=== PATIENT | male | born 1945 | race Caucasian/White ===

== ENCOUNTER 2020-10-19 06:28 | Outpatient (REF) | payer MEDICARE, OTHER, SELFPAY ==
[2020-10-19 11:46] LABS: Hematocrit 46.6 % (42-52); Hemoglobin 15.7 g/dl (14.0-18.0); Mean Corpuscular HGB Conc 33.7 g/dl (31.0-36.0); Mean Corpuscular Hemoglobin 32.4 pg (27.0-33.0); Mean Corpuscular Volume 96.1 fL (80-98); Mean Platelet Volume 10.1 fL (9.4-12.4); Platelet Count 235 X10*3/uL (160-400); Red Blood Count 4.85 X10*6/uL (4.60-5.80); White Blood Count 6.1 X10*3/uL (4.8-10.8)
[2020-10-19 12:09] LABS: Alanine Aminotransferase 36 U/L (0-40); Albumin Level 4.5 g/dL (3.5-5.0); Alkaline Phosphatase 55 U/L (39-117); Anion Gap 14 (12-20); Aspartate Amino Transferase 18 U/L (5-37); Bilirubin Total 0.5 mg/dL (0.0-1.0); Blood Urea Nitrogen 15 mg/dL (9-16); Calcium 9.3 mg/dL (8.4-10.2); Carbon Dioxide 27 mmol/L (22-29); Chloride 103 mmol/L (96-108); Cholesterol 208 mg/dL; Estimated Glomerular Filt Rate > 60; Glucose Fasting 105 mg/dL (60-99); HDL Cholesterol 39 mg/dL; LDL Cholesterol Calculated 105 mg/dl; Potassium 4.2 mmol/l (3.3-5.1); Sodium 140 mmol/L (135-145); Total Protein 7.7 g/dL (6.5-8.0); Triglycerides 320 mg/dL; Uric Acid 5.1 mg/dL (3.4-7.0)
[2020-10-19 12:11] LABS: Prostate Specific Antigen Scr 1.73 ng/mL (<0.05-4.0); TSH reflex Free T4 2.97 mIU/mL (0.32-4.0)
== END 2020-10-19 06:29 | disposition home or self-care (01) ==
LOC: HO.HMGCLDS 06:28
PROVIDERS: PCP Internal Medicine; Visit Provider Internal Medicine
DX: R53.83 Other fatigue (principal); E55.9 Vitamin D deficiency, unspecified; Z00.00 Encounter for general adult medical examination without abnormal findings
CPT/HCPCS: 36415; 80053; 80061; 82306; 84153; 84443; 84550; 85027

== ENCOUNTER 2021-10-18 06:07 | Outpatient (REF) | payer MEDICARE, OTHER, SELFPAY ==
[2021-10-18 11:23] LABS: Hematocrit 42.9 % (42.0-52.0); Hemoglobin 14.4 g/dl (14.0-18.0); Mean Corpuscular HGB Conc 33.6 g/dl (31.0-36.0); Mean Corpuscular Hemoglobin 32.1 pg (27.0-33.0); Mean Corpuscular Volume 95.5 fL (80.0-98.0); Mean Platelet Volume 9.7 fL (9.4-12.4); Platelet Count 218 X10*3/uL (160-400); Red Blood Count 4.49 X10*6/uL (4.60-5.80); Red Cell Distribution Width 12.9 % (11.0-16.0); White Blood Count 6.6 X10*3/uL (4.8-10.8)
[2021-10-18 11:55] LABS: Alanine Aminotransferase 30 U/L (0-40); Albumin Level 4.3 g/dL (3.5-5.0); Alkaline Phosphatase 61 U/L (39-117); Anion Gap 15 (12-20); Aspartate Amino Transferase 17 U/L (5-37); Bilirubin Total 0.3 mg/dL (0.0-1.0); Blood Urea Nitrogen 11 mg/dL (9-16); Calcium 9.6 mg/dL (8.4-10.2); Carbon Dioxide 27 mmol/L (22-29); Chloride 102 mmol/L (96-108); Cholesterol 216 mg/dL; Estimated Glomerular Filt Rate > 60; Glucose Random 112 mg/dL (60-115); HDL Cholesterol 35 mg/dL; LDL Cholesterol Calculated 110 mg/dl; Potassium 4.1 mmol/L (3.3-5.1); Sodium 140 mmol/L (135-145); Total Protein 7.5 g/dL (6.5-8.0); Triglycerides 359 mg/dL
[2021-10-18 12:25] LABS: TSH reflex Free T4 3.01 uIU/mL (0.32-4.0)
[2021-10-18 12:34] LABS: Prostate Specific Antigen Scr 2.56 ng/mL (<0.05-4.0)
== END 2021-10-18 06:08 | disposition home or self-care (01) ==
LOC: HO.HMGCLDS 06:07
PROVIDERS: PCP Internal Medicine; Visit Provider Internal Medicine
DX: Z00.00 Encounter for general adult medical examination without abnormal findings (principal); Z12.5 Encounter for screening for malignant neoplasm of prostate; R53.83 Other fatigue
CPT/HCPCS: 36415; 80053; 80061; 84153; 84443; 85027

== ENCOUNTER 2022-09-12 06:27 | Day surgery (SDC) | payer MEDICARE, OTHER, SELFPAY ==
--- NOTE | 2022-09-11 12:53 | P.CONAN_ITS ---
Documented by User: Maritza Mcghee NP 09/11/22 12:53 HPI - Anesthesia Eval Consult details Narrative: 77yo M for Upper Endoscopy with Balloon Dilitation [facility] Past Medical History Medical History Diverticulosis Gout Shingles Tubular adenoma Social History Social History Patient Tobacco Use Status: Former Tobacco user Quit Date: decades ago Use of substances other than those prescribed or required for medical reasons: No Are you DNR?: No Advance Directives: No Advance Directives Information Provided: Yes Meds Allergies Allergy/AdvReac Type Severity Reaction Status Date / Time Seasonal Allergies Allergy Intermediate Unknown Verified 09/12/22 06:36 Home Medications Medication Instructions Recorded Confirmed Last Taken Type allopurinol 300 mg tablet 1 tab PO DAILY 09/11/22 09/11/22 Unknown History Exam Exam Date and Time: September 11, 20221252 Assessment and Plan Assessment Anesthesia Assessment: Chart Reviewed Documented by User: Hardeep Ascencio MD 09/12/22 07:23 [facility] Past Medical History Medical History Diverticulosis Gout Shingles Tubular adenoma Family History Family history of problems with anesthesia: No Surgical History History of Problems with Anesthesia: No Social History Social History Patient Tobacco Use Status: Former Tobacco user Quit Date: decades ago Use of substances other than those prescribed or required for medical reasons: No Are you DNR?: No Advance Directives: No Advance Directives Information Provided: Yes Meds Allergies Allergy/AdvReac Type Severity Reaction Status Date / Time Seasonal Allergies Allergy Intermediate Unknown Verified 09/12/22 06:36 Home Medications Medication Instructions Recorded Confirmed Last Taken Type allopurinol 300 mg tablet 1 tab PO DAILY 09/11/22 09/11/22 Unknown History Exam Airway Mallampati Class: III TM Dist: >3cm Neck ROM: Full Loose/Missing/Broken Teeth: No Heart: rrr Lungs: clear Assessment and Plan Final Anesthetic Review Family History of Problems with Anesthesia: No History of Problems with Anesthesia: No NPO: Yes ASA Class: II Final Preanesthetic Review: No Changes in Pt Med Stat, Meds/Allgs Chart Reviewed, Consent Obtained/Reviewed and Anes Risks/Benef Reviewed Patient Risk: Intermediate Procedure Risk: Low Anesthetic Plan Anesthetic Plan: MAC: Disposition: Standard PACU
[2022-09-12 06:39] VITALS: BP 127/84; PULSE 78; RESP 18; TEMP 36.9; O2SAT 98; BMI 26.9
[2022-09-12] MEDS: Lactated Ringers 1,000 ML 100 ML IVCONT (07:00)
[2022-09-12 07:02] VITALS: BMI 26.9
[2022-09-12 08:12] VITALS: BP 106/69; PULSE 75; RESP 18; TEMP 36.4; O2SAT 94
--- NOTE | 2022-09-12 08:16 | PM.OP ---
Brief Operative Note Date of Service: 09/12/22 Pre-op diagnosis: Dysphagia Post-op diagnosis: other (GERD, Hiatal hernia) Procedure: EGD with Balloon Dilation and biopsies Surgeon: Lee Becerra Anesthesia: MAC Was an Multiple Knife Edge Trimmer Operator used for this Procedure?: No Estimated blood loss (mL): 2.0 Pathology: other (A. EG Junction at 38cm B. Gastric polyps) Condition: stable Disposition: PACU
[2022-09-12 08:23] VITALS: BP 113/76; PULSE 74; RESP 18; TEMP 36.4; O2SAT 9
--- NOTE | 2022-09-12 21:31 | OP_ITS ---
SURGEON: Lee Becerra MD INDICATIONS: The patient presents for evaluation of dysphagia. Full consent has been obtained from him for this, including risks of bleeding and perforation. PREOPERATIVE DIAGNOSIS: POSTOPERATIVE DIAGNOSIS: PROCEDURE PERFORMED: Esophagogastroduodenoscopy with balloon dilation and biopsies. ESTIMATED BLOOD LOSS: COMPLICATIONS: ANESTHESIA: Monitored anesthesia care. ASSISTANTS: SPECIMENS: PREOPERATIVE DIAGNOSES: Dysphagia. POSTOPERATIVE DIAGNOSES: Dysphagia, gastroesophageal reflux, hiatal hernia, gastric polyps. DESCRIPTION OF PROCEDURE: The patient was placed in the left lateral decubitus position. The Olympus video gastroscope was passed into the posterior oropharynx and upper esophagus under direct vision. The scope was passed slowly to the distal esophagus. The gastroesophageal junction appeared at 38 cm. This area was notable for some edema, erythema, and some irregularity of the mucosa but no ulcerations, erosions, stricture, nor any definitive ring. The scope easily entered into the stomach. There was a small hiatal hernia. The scope was advanced to the pylorus, and the duodenum was cannulated in the descending portion. The duodenum including the bulb appeared normal without mass or ulceration. The scope was withdrawn back into the stomach. The gastric antrum and body appeared normal with good peristalsis. The scope was retroflexed visualizing the proximal stomach carefully, which appeared normal, without any sign of mass or ulceration, other than some hyperplastic-appearing gastric polyps. The scope was straightened and withdrawn back to the esophagus. I did use a [employer] incremental balloon to dilate the gastroesophageal junction from 18 mm to 19 mm to 20 mm at the recommended pressure for 60 seconds each. There was some heme noted post dilation. I then obtained biopsies at the gastroesophageal junction. Again, the scope passed easily into the stomach without any hesitation or difficulty. In the stomach I did obtain biopsies from 2 of the gastric polyps. The scope was withdrawn back to the esophagus. Proximal to the EG junction at 38 cm, the esophageal mucosa appeared normal. The scope was withdrawn from the patient. He tolerated the procedure well and was returned to the recovery area in stable condition. IMPRESSION: 1. Hiatal hernia, gastroesophageal reflux, status post balloon dilation of gastroesophageal junction. 2. Gastric polyps. PLAN: The results of the biopsies will be checked. Given his symptoms and these findings, I do suspect that a significant component of his dysphagia is probably more related to reflux and esophageal spasm. I shall start him on omeprazole 40 mg daily. The results of the biopsies will be checked. He was advised not to use any aspirin or NSAIDs for at least 1 week. If things improve and he remains stable, then I do not think any further workup would be required. At some point, we can decrease omeprazole to 20 mg daily. However, if he continues to have significant symptoms of dysphagia, we would then want to obtain an esophageal motility study. He will be followed up in the office. This has been discussed with his . MD RENÉ Rashid/CANDIDO / [id number] MTDD
== END 2022-09-12 09:06 | disposition home or self-care (01) ==
PROVIDERS: PCP Internal Medicine; Visit Provider Internal Medicine
PROC: (CPT 43249; principal; 2022-09-12 07:30)
DX: R13.10 Dysphagia, unspecified (principal); K21.9 Gastro-esophageal reflux disease without esophagitis; K31.7 Polyp of stomach and duodenum; K44.9 Diaphragmatic hernia without obstruction or gangrene; K57.30 Diverticulosis of large intestine without perforation or abscess without bleeding; M10.9 Gout, unspecified; Z79.899 Other long term (current) drug therapy; Z86.19 Personal history of other infectious and parasitic diseases; Z87.891 Personal history of nicotine dependence
CPT/HCPCS: 43249; 43239; 88305; 88342; C1726

== ENCOUNTER 2022-10-18 06:09 | Outpatient (REF) | payer MEDICARE, OTHER, SELFPAY ==
[2022-10-18 11:27] LABS: Hematocrit 44.7 % (42.0-52.0); Mean Corpuscular HGB Conc 33.6 g/dl (31.0-36.0); Mean Corpuscular Hemoglobin 32.1 pg (27.0-33.0); Mean Corpuscular Volume 95.5 fL (80.0-98.0); Mean Platelet Volume 9.9 fL (9.4-12.4); Platelet Count 206 X10*3/uL (160-400); Red Blood Count 4.68 X10*6/uL (4.60-5.80); Red Cell Distribution Width 13.2 % (11.0-16.0)
[2022-10-18 12:26] LABS: Alanine Aminotransferase 41 U/L (0-40); Albumin Level 4.4 g/dL (3.5-5.0); Alkaline Phosphatase 57 U/L (39-117); Anion Gap 11 (12-20); Aspartate Amino Transferase 21 U/L (5-37); Bilirubin Total 0.5 mg/dL (0.0-1.0); Blood Urea Nitrogen 15 mg/dL (9-16); Calcium 9.7 mg/dL (8.4-10.2); Carbon Dioxide 31 mmol/L (22-29); Chloride 99 mmol/L (96-108); Cholesterol 214 mg/dL; Estimated Glomerular Filt Rate 56; Glucose Random 122 mg/dL (60-115); HDL Cholesterol 31 mg/dL; Potassium 4.6 mmol/L (3.3-5.1); Sodium 136 mmol/L (135-145); Total Protein 7.5 g/dL (6.5-8.0); Triglycerides 474 mg/dL
== END 2022-10-18 06:10 | disposition home or self-care (01) ==
LOC: HO.HMGCLDS 06:09
PROVIDERS: PCP Internal Medicine; Visit Provider Internal Medicine
DX: Z00.00 Encounter for general adult medical examination without abnormal findings (principal); R53.83 Other fatigue; Z12.5 Encounter for screening for malignant neoplasm of prostate
CPT/HCPCS: 36415; 80053; 80061; 84153; 84443; 85027

== ENCOUNTER 2023-05-06 07:31 | Day surgery (SDC) | payer MEDICARE, OTHER, SELFPAY ==
[2023-04-30 09:18] VITALS: BMI 27.0
--- NOTE | 2023-05-03 08:09 | MHC.SHP ---
Pre-Procedural Eval Section A Date of Service: 05/03/23 The patient is an INPATIENT: No Changes since office visit: No Cold of Flu in the past 2 weeks, No New Medical Problems, No Changes in Medication and No Patient answered all questions The History & Physical has been completed within 30 days and I have reviewed it.: Yes Section B Chief Complaint: Age-related nuclear cataract, left eye Allergies: Allergies Allergy/AdvReac Type Severity Reaction Status Date / Time Seasonal Allergies Allergy Intermediate Unknown Verified 09/12/22 06:36 Plan Diagnosis/Plan: Unchanged I have reviewed the history and physical and performed a pertinent physical examination on my patient. No changes have occurred unless specified. Time Spent With Patient Time: Total time managing care of this patient today ____ minutes.
--- NOTE | 2023-05-03 09:31 | HO.ANESPROP2 ---
HPI - Anesthesia Eval Consult details Narrative: Left Cataract Multifocal with IOL Insertion PCP cleared No previous cataract PMFSH Past Medical History Medical History Arthritis Diverticulosis GERD (gastroesophageal reflux disease) Gout Shingles Tubular adenoma Family History Family history of problems with anesthesia: No Surgical History Surgical History H/O colonoscopy History of esophagogastroduodenoscopy (EGD) History of Problems with Anesthesia: No Social History Social History Are you a primary care transitions manager to a significant other at home: No Do you presently have visiting nurse or other home services: No Patient Tobacco Use Status: Former Tobacco user Quit Date: age 28 Use of substances other than those prescribed or required for medical reasons: No Have you been hit, kicked, punched, or otherwise hurt by someone within the past year? If so, by whom?: No Are you DNR?: No Advance Directives: No (states is HCP) Advance Directives Information Provided: Yes (as above noted) Advance Directives on File: No Recently lost weight without trying: No Eating poorly because of decreased appetite: No Nutrition Risks: Surgical patient >75years Poor oral hygiene: No Meds Allergies Allergy/AdvReac Type Severity Reaction Status Date / Time Seasonal Allergies Allergy Intermediate Unknown Verified 05/06/23 08:08 Home Medications Medication Instructions Recorded Confirmed Last Taken Type allopurinol 300 mg tablet 1 tab PO QAM 09/11/22 04/30/23 05/06/23 06:30 History fluticasone propionate 50 2 spray intranasal QAM 04/30/23 04/30/23 05/06/23 06:30 History mcg/actuation nasal spray,suspension omeprazole 40 mg capsule,delayed 40 mg PO QAM 04/30/23 04/30/23 05/06/23 06:30 History release Exam Exam Date and Time: May 03, 202331 Height,Weight and Vital Signs: Height 5 ft 10 in Weight 85.275 kg Assessment and Plan Assessment Anesthesia Assessment: Chart Reviewed Final Anesthetic Review Family History of Problems with Anesthesia: No History of Problems with Anesthesia: No
[2023-05-06 09:12] VITALS: BP 132/80; PULSE 70; RESP 15; TEMP 36.7; O2SAT 98
[2023-05-06] MEDS: Lactated Ringers 500 ML 50 ML IV (09:14)
[2023-05-06] MEDS: Tetracaine HCl/PF 0.5% Oph Sol 4 ML DROPS 1 DROP EYE-LEFT (09:14)
[2023-05-06] MEDS: Cyclopentolate 1 % Ophth Sol 2 ML DRPBTL 1 DROP EYE-LEFT ×3 (09:15→09:24)
[2023-05-06] MEDS: Tropicamide 1 % Ophth Sol 3 ML BTL 1 DROP EYE-LEFT ×3 (09:16→09:25)
[2023-05-06] MEDS: Ketorolac Tromethamine 0.5% Op 5 ML DROPS 1 DROP EYE-LEFT ×3 (09:17→09:26)
[2023-05-06] MEDS: Phenylephrine HCL 2.5% Oph SoL 2 ML BOTTLE 1 DROP EYE-LEFT ×3 (09:18→09:27)
--- NOTE | 2023-05-06 10:43 | HO.PNOPHT ---
Ophthalmology Procedure Procedure Date of Service: 05/06/23 Ophthalmology Viscoelastic: Healdionicio Duet Dual Pack Pro Ophthalmology Lenses: TECLARON [id number] (11.5) Procedure Notes: PREOPERATIVE DIAGNOSIS: Decreased visual acuity left eye secondary to cataract POSTOPERATIVE DIAGNOSIS: Same PROCEDURE: Left cataract extraction with intraocular lens insertion SURGEON: Phil Mcdonald M.D. ANESTHESIA: Topical/MAC ESTIMATED BLOOD LOSS: None COMPLICATIONS: None After obtaining informed consent, the patient was brought to the operation room suite and placed in the supine position. After adequate sedation per anesthesia, topical drops of Tetracaine were given to the left eye. The eye was then prepped and draped in the usual sterile fashion. The operating room microscope was then positioned over the operative eye and a lid speculum placed. A paracentesis was created. Viscoelastic was then instilled into the anterior chamber. A three plane incision was then created temporally, utilizing a 2.85 mm keratome. Capsulotomy forceps were then utilized to create a circular tear capsulotomy. Hydrodissection and hydrodelineation were carried out until adequate mobilization of the nucleus occurred. Phacoemulsification was then utilized to remove the dense central nucleus followed by removal of the cortical material utilizing the automated aspiration irrigation unit. Viscoat elastic was instilled into the posterior capsular bag followed by placement of a posterior chamber intraocular lens without difficulty. The residual Viscoat elastic was then removed utilizing the automated IA machine. The wound was check and found to be watertight. The patient tolerated the procedure well and the lid speculum was removed. Intracameral injection of Vigamox 0.1 mL followed by a subtenon injection of Kenalog-40 0.2 mL were administered. The patient will be seen in the a.m.
[2023-05-06 11:05] VITALS: BP 160/92; PULSE 75; RESP 17; TEMP 36.5; O2SAT 99
== END 2023-05-06 11:09 | disposition home or self-care (01) ==
PROVIDERS: PCP Internal Medicine; Visit Provider Ophthalmology
PROC: (CPT 66985; principal; 2023-05-06 10:40)
DX: H25.12 Age-related nuclear cataract, left eye (principal); H54.7 Unspecified visual loss; M10.9 Gout, unspecified; K21.9 Gastro-esophageal reflux disease without esophagitis; J30.1 Allergic rhinitis due to pollen; Z79.899 Other long term (current) drug therapy; Z87.891 Personal history of nicotine dependence
CPT/HCPCS: 66984; J2250; J3010; J3301; V2632

== ENCOUNTER 2023-05-27 09:28 | Day surgery (SDC) | payer MEDICARE, OTHER, SELFPAY ==
[2023-04-30 09:20] VITALS: BMI 27.0
--- NOTE | 2023-05-24 08:16 | MHC.SHP ---
Pre-Procedural Eval Section A Date of Service: 05/24/23 The patient is an INPATIENT: No Changes since office visit: No Cold of Flu in the past 2 weeks, No New Medical Problems, No Changes in Medication and No Patient answered all questions The History & Physical has been completed within 30 days and I have reviewed it.: Yes Section B Chief Complaint: Age-related nuclear cataract, right eye Allergies: Allergies Allergy/AdvReac Type Severity Reaction Status Date / Time Seasonal Allergies Allergy Intermediate Unknown Verified 05/06/23 08:08 Plan Diagnosis/Plan: Unchanged I have reviewed the history and physical and performed a pertinent physical examination on my patient. No changes have occurred unless specified. Time Spent With Patient Time: Total time managing care of this patient today ____ minutes.
--- NOTE | 2023-05-24 10:43 | HO.ANESPROP2 ---
Documented by User: Maritza Mcghee NP 05/24/23 10:44 HPI - Anesthesia Eval Consult details Narrative: 78yo M for Right Cataract Extraction IOL Insertion PCP cleared Left eye 05/06/2023 with TIVA: Fent 50, Midaz 1 PMFSH Past Medical History Medical History Arthritis Diverticulosis GERD (gastroesophageal reflux disease) Gout Shingles Tubular adenoma Family History Family history of problems with anesthesia: No Surgical History Surgical History H/O colonoscopy History of esophagogastroduodenoscopy (EGD) History of Problems with Anesthesia: No Social History Social History Are you a primary care clinician to a significant other at home: No Do you presently have visiting nurse or other home services: No Patient Tobacco Use Status: Former Tobacco user Quit Date: age 28 Use of substances other than those prescribed or required for medical reasons: No Have you been hit, kicked, punched, or otherwise hurt by someone within the past year? If so, by whom?: No Are you DNR?: No Advance Directives: No (states is HCP) Advance Directives Information Provided: Yes (as above noted) Advance Directives on File: No Recently lost weight without trying: No Eating poorly because of decreased appetite: No Nutrition Risks: Surgical patient >75years Poor oral hygiene: No Meds Allergies Allergy/AdvReac Type Severity Reaction Status Date / Time Seasonal Allergies Allergy Intermediate Unknown Verified 05/06/23 08:08 Home Medications Medication Instructions Recorded Confirmed Last Taken Type allopurinol 300 mg tablet 1 tab PO QAM 09/11/22 04/30/23 05/27/23 History fluticasone propionate 50 2 spray intranasal QAM 04/30/23 04/30/23 05/06/23 06:30 History mcg/actuation nasal spray,suspension omeprazole 40 mg capsule,delayed 40 mg PO QAM 04/30/23 04/30/23 05/27/23 History release Exam Exam Date and Time: May 24, 2023 1043 Height,Weight and Vital Signs: Height 5 ft 10 in Weight 85.275 kg Assessment and Plan Assessment Anesthesia Assessment: Chart Reviewed Final Anesthetic Review Family History of Problems with Anesthesia: No History of Problems with Anesthesia: No Documented by User: Tiffanie Leigh MD 05/27/23 12:13 [facility] Past Medical History Medical History Arthritis Diverticulosis GERD (gastroesophageal reflux disease) Gout Shingles Tubular adenoma Surgical History Surgical History H/O colonoscopy History of esophagogastroduodenoscopy (EGD) Social History Social History Are you a primary care clinician to a significant other at home: No Do you presently have visiting nurse or other home services: No Patient Tobacco Use Status: Former Tobacco user Quit Date: age 28 Use of substances other than those prescribed or required for medical reasons: No Have you been hit, kicked, punched, or otherwise hurt by someone within the past year? If so, by whom?: No Are you DNR?: No Advance Directives: No (states is HCP) Advance Directives Information Provided: Yes (as above noted) Advance Directives on File: No Recently lost weight without trying: No Eating poorly because of decreased appetite: No Nutrition Risks: Surgical patient >75years Poor oral hygiene: No Meds Allergies Allergy/AdvReac Type Severity Reaction Status Date / Time Seasonal Allergies Allergy Intermediate Unknown Verified 05/06/23 08:08 Home Medications Medication Instructions Recorded Confirmed Last Taken Type allopurinol 300 mg tablet 1 tab PO QAM 09/11/22 04/30/23 05/27/23 History fluticasone propionate 50 2 spray intranasal QAM 04/30/23 04/30/23 05/06/23 06:30 History mcg/actuation nasal spray,suspension omeprazole 40 mg capsule,delayed 40 mg PO QAM 04/30/23 04/30/23 05/27/23 History release Exam Airway Mallampati Class: II TM Dist: >3cm Neck ROM: Full Loose/Missing/Broken Teeth: No Heart: RRR Lungs: CTA Assessment and Plan Assessment Anesthesia Assessment: Anesthesia Plan Discussed Final Anesthetic Review NPO: Yes ASA Class: II Final Preanesthetic Review: Meds/Allgs Chart Reviewed, Consent Obtained/Reviewed and Anes Risks/Benef Reviewed Patient Risk: Low Procedure Risk: Low Anesthetic Plan Anesthetic Plan: MAC: Disposition: Standard PACU
[2023-05-27 11:07] VITALS: BP 173/95; PULSE 70; RESP 16; TEMP 36.7; O2SAT 97
--- NOTE | 2023-05-27 12:06 | HO.PNOPHT ---
Ophthalmology Procedure Procedure Date of Service: 05/27/23 Ophthalmology Viscoelastic: Teresa Diegot Dual Pack Pro Ophthalmology Lenses: TECLARON [id number] (10) Procedure Notes: PREOPERATIVE DIAGNOSIS: Decreased visual acuity right eye secondary to cataract POSTOPERATIVE DIAGNOSIS: Same PROCEDURE: Right cataract extraction with intraocular lens insertion SURGEON: Phil Mcdonald M.D. ANESTHESIA: Topical/MAC ESTIMATED BLOOD LOSS: None COMPLICATIONS: None After obtaining informed consent, the patient was brought to the operating room suite and placed in the supine position. After adequate sedation per anesthesia, topical drops of Tetracaine were given to the right eye. The eye was then prepped and draped in the usual sterile fashion. The operating room microscope was then positioned over the operative eye and a lid speculum placed. A paracentesis was created. Viscoelastic was then instilled into the anterior chamber. A three plane incision was then created temporally, utilizing a 2.85 mm keratome. Capsulotomy forceps were then utilized to create a circular tear capsulotomy. Hydrodissection and hydrodelineation were carried out until adequate mobilization of the nucleus occurred. Phacoemulsification was then utilized to remove the dense central nucleus followed by removal of the cortical material utilizing the automated aspiration irrigation unit. Viscoelastic was instilled into the posterior capsular bag followed by placement of a posterior chamber intraocular lens without difficulty. The residual Viscoelastic was then removed utilizing the automated IA machine. The wound was checked and found to be watertight. The patient tolerated the procedure well and the lid speculum was removed. Intracameral injection of Vigamox 0.1 mL followed by a subtenon injection of Kenalog-40 0.2 mL were administered. The patient will be seen in the a.m.
[2023-05-27 12:34] VITALS: BP 127/85; PULSE 68; RESP 16; TEMP 36.6; O2SAT 97
== END 2023-05-27 12:44 | disposition home or self-care (01) ==
PROVIDERS: PCP Internal Medicine; Visit Provider Ophthalmology
PROC: (CPT 66985; principal; 2023-05-27 12:10)
DX: H25.11 Age-related nuclear cataract, right eye (principal); H54.7 Unspecified visual loss; K21.9 Gastro-esophageal reflux disease without esophagitis; Z87.891 Personal history of nicotine dependence; Z79.899 Other long term (current) drug therapy
CPT/HCPCS: 66984; J2250; J3010; J3301; V2632

== ENCOUNTER 2023-06-12 06:25 | Day surgery (SDC) | payer MEDICARE, OTHER, SELFPAY ==
--- NOTE | 2023-06-11 09:34 | HO.ANESPROP2 ---
Documented by User: Maritza Mcghee NP 06/11/23 09:35 HPI - Anesthesia Eval Consult details Narrative: 78yo M for Colonoscopy s/p cataract 05/27/23 [facility] Past Medical History Medical History Arthritis Diverticulosis GERD (gastroesophageal reflux disease) Gout Shingles Tubular adenoma Family History Family history of problems with anesthesia: No Surgical History Surgical History H/O colonoscopy History of esophagogastroduodenoscopy (EGD) History of Problems with Anesthesia: No Social History Social History Are you a primary hearing care professional to a significant other at home: No Do you presently have visiting nurse or other home services: No Patient Tobacco Use Status: Former Tobacco user Quit Date: 40 years ago Use of substances other than those prescribed or required for medical reasons: No Are you DNR?: No Advance Directives: No Advance Directives Information Provided: Yes Meds Allergies Allergy/AdvReac Type Severity Reaction Status Date / Time Seasonal Allergies Allergy Intermediate Unknown Verified 05/06/23 08:08 Home Medications Medication Instructions Recorded Confirmed Last Taken Type allopurinol 300 mg tablet 1 tab PO [facility] 09/11/22 06/12/23 05/27/23 History fluticasone propionate 50 2 spray intranasal [facility] 04/30/23 06/12/23 05/06/23 06:30 History mcg/actuation nasal spray,suspension omeprazole 40 mg capsule,delayed 40 mg PO [facility] 04/30/23 06/12/23 05/27/23 History release Exam Exam Date and Time: June 11, [id number] Assessment and Plan Assessment Anesthesia Assessment: Chart Reviewed Final Anesthetic Review Family History of Problems with Anesthesia: No History of Problems with Anesthesia: No Documented by User: Tiffanie Leigh MD 06/12/23 07:29 [facility] Past Medical History Medical History Arthritis Diverticulosis GERD (gastroesophageal reflux disease) Gout Shingles Tubular adenoma Surgical History Surgical History H/O colonoscopy History of esophagogastroduodenoscopy (EGD) Social History Social History Are you a primary hearing care professional to a significant other at home: No Do you presently have visiting nurse or other home services: No Patient Tobacco Use Status: Former Tobacco user Quit Date: 40 years ago Use of substances other than those prescribed or required for medical reasons: No Are you DNR?: No Advance Directives: No Advance Directives Information Provided: Yes Meds Allergies Allergy/AdvReac Type Severity Reaction Status Date / Time Seasonal Allergies Allergy Intermediate Unknown Verified 05/06/23 08:08 Home Medications Medication Instructions Recorded Confirmed Last Taken Type allopurinol 300 mg tablet 1 tab PO QA 09/11/22 06/12/23 05/27/23 History fluticasone propionate 50 2 spray intranasal QAM 04/30/23 06/12/23 05/06/23 06:30 History mcg/actuation nasal spray,suspension omeprazole 40 mg capsule,delayed 40 mg PO QAM 04/30/23 06/12/23 05/27/23 History release Exam Airway Mallampati Class: III TM Dist: >3cm Neck ROM: Full Loose/Missing/Broken Teeth: No Heart: RRR Lungs: CTA Assessment and Plan Assessment Anesthesia Assessment: Anesthesia Plan Discussed Final Anesthetic Review NPO: Yes ASA Class: II Final Preanesthetic Review: Meds/Allgs Chart Reviewed, Consent Obtained/Reviewed and Anes Risks/Benef Reviewed Patient Risk: Low Procedure Risk: Low Anesthetic Plan Anesthetic Plan: MAC: Disposition: Standard PACU
[2023-06-12 06:38] VITALS: BP 147/85; PULSE 75; RESP 18; TEMP 36.2; O2SAT 97; BMI 27.3
[2023-06-12] MEDS: Lactated Ringers 1,000 ML 100 ML IVCONT (07:00)
[2023-06-12 08:25] VITALS: BP 84/55; PULSE 73; RESP 16; TEMP 36.1; O2SAT 98
--- NOTE | 2023-06-12 08:26 | PM.OP ---
Brief Operative Note Date of Service: 06/12/23 Pre-op diagnosis: Screening Post-op diagnosis: other (Diverticulosis) Procedure: Colonoscopy to the cecum and TI Surgeon: Lee Becerra Anesthesia: MAC Was an Bloom Conveyor Operator used for this Procedure?: No Estimated blood loss (mL): 0 Pathology: none sent Condition: stable Disposition: PACU
[2023-06-12 08:30] VITALS: BP 94/52; PULSE 87; RESP 16; O2SAT 97
[2023-06-12 08:35] VITALS: BP 101/63
[2023-06-12 08:40] VITALS: BP 121/73; PULSE 78; RESP 16; TEMP 36.4; O2SAT 96
[2023-06-12 08:48] VITALS: BP 135/82; PULSE 79; RESP 16; TEMP 36.4; O2SAT 98
--- NOTE | 2023-06-12 08:51 | OP_ITS ---
DATE OF SERVICE: 06/12/2023 SURGEON: Lee Becerra MD INDICATIONS: The patient presents for evaluation of colorectal cancer screening and personal history of tubular adenoma of the colon. Full consent has been obtained from him for this, including risks of bleeding and perforation. PREOPERATIVE DIAGNOSIS: Colorectal cancer screening and personal history of tubular adenoma of the colon. POSTOPERATIVE DIAGNOSIS: Colorectal cancer screening and personal history of tubular adenoma of the colon, diverticulosis, and internal hemorrhoids. PROCEDURE PERFORMED: Colonoscopy to the cecum and terminal ileum. ESTIMATED BLOOD LOSS: COMPLICATIONS: ANESTHESIA: Monitored anesthesia care. ASSISTANTS: SPECIMENS: DESCRIPTION OF PROCEDURE: The patient was placed in the left lateral decubitus position. The digital rectal exam revealed no abnormalities. The Olympus video pediatric colonoscope was entered into the rectum and advanced easily to the cecum. Once in the cecum, I did identify normal-appearing cecal pouch with appendiceal orifice and a normal-appearing ileocecal valve. The terminal ileum was cannulated and appeared normal. The scope was withdrawn back in the colon. The entire cecum and ileocecal valve appeared normal. The scope was slowly withdrawn assessing all mucosal surfaces carefully. Preparation was excellent. I did not visualize any sign of polyps, colitis, nor angiodysplasia. There was a mild amount of sigmoid diverticulosis. In the rectum, scope was retroflexed visualizing internal hemorrhoids, but no other pathology. The rectal mucosa appeared normal. The scope was straightened and withdrawn from the patient. He tolerated the procedure well and was returned to the recovery area in stable condition. IMPRESSION: 1. Diverticulosis. 2. Internal hemorrhoids. PLAN: Given today's negative exam and his age, I do not think he would need any further screening colonoscopies. He was advised to continue his omeprazole 20 mg long-term in regard to the previous history of an esophageal stricture and reflux. He will otherwise see me on a p.r.n. basis. Lee Becerra MD RMGopal/JAIROL / [id number]
== END 2023-06-12 09:17 | disposition home or self-care (01) ==
PROVIDERS: PCP Internal Medicine; Visit Provider Internal Medicine
PROC: 0DJD8ZZ Inspection of Lower Intestinal Tract, Via Natural or Artificial Opening Endoscopic (ICD-10-PCS; CPT 45378; principal; 2023-06-12 07:30)
DX: Z12.11 Encounter for screening for malignant neoplasm of colon (principal); K57.30 Diverticulosis of large intestine without perforation or abscess without bleeding; K64.8 Other hemorrhoids; Z86.010 Personal history of colon polyps; R13.10 Dysphagia, unspecified; K21.9 Gastro-esophageal reflux disease without esophagitis; Z79.899 Other long term (current) drug therapy
CPT/HCPCS: G0105

== ENCOUNTER 2024-10-12 09:27 | Outpatient (REF) | payer MEDICARE, OTHER, SELFPAY ==
[2024-10-12 09:31] VITALS: BP 146/86; PULSE 78; RESP 16; TEMP 36.6; O2SAT 99; BMI 25.0
== END 2024-10-12 09:28 | disposition home or self-care (01) ==
LOC: HO.MS 09:27
PROVIDERS: PCP Internal Medicine; Visit Provider Ophthalmology
PROC: (CPT 66821; principal; 2024-10-12 13:40)
DX: H26.492 Other secondary cataract, left eye (principal)
CPT/HCPCS: 66821

== ENCOUNTER 2025-09-16 13:29 | Day surgery (SDC) | payer MEDICARE, OTHER, SELFPAY ==
--- OUTSIDE RECORDS SUMMARY | 2025-09-13 17:43 | XMS_ITS | Patient Health Record ---
Author Organization [facility] Address [address] [place] [address] Care Team Providers Care Mitten Stitcher Name Role Phone Shad Garrett MD Primary Care Provider UnavailLee De Paz [phone] Allergies No Known Allergies Reason For Referral No Information Medications Medication SIG (Take, Route, Frequency, Duration) Notes Start Date End Date Status Omeprazole 40 MG 1 every morning Oral ly Once every morning; Duration: 30 day(s) 12/07/2022 Active Famciclovir 500 MG as directed Orally x 7 days Not-Taking Doxycycline Hyclate 100 MG as directed Orally x 7 days Not-Taking Flonase Active Allopurinol 100 MG 1 tablet Orally Once a day Active Immunizations Vaccine Route Administration Date Status Comme nts Flu vaccine no Preserv 3 and > Unknown 08/26/2017 Admin istered Influenza Unknown 10/10/2021 Administered Influenza Unknown 08/27/2025 Administered Problems Problem Type SNOMED Code ICD Code Onset Dates Problem Status W/U Status Risk Notes Problem Screening for malignant neoplasm of colon (185500214) Encounter for screening for malignant neoplasm of colon (Z12.11) Active confirmed Problem History of adenomatous polyp of colon (869844557) History of adenomatous polyp of colon (Z86.010) Active confirmed Problem Dysphagia (67581642) Dysphagia (R13.10) Active confirmed Problem History of polyp of colon (situation) (202657951) History of colon polyps (Z86.010) Active confirmed Problem Benign neoplasm of stomach (65316717) Gastric polyps (K31.7) Active confirmed Problem Diverticulosis of colon (990022311) Diverticulosis of colon (K57.30) Active confirmed Problem Gastroesophageal reflux disease (201955024) Gastroesophageal reflux disease, unspecified whether esophagitis present (K21.9) Active confirmed Vital Signs Temperature 97.8 degrees Fahrenheit 08/27/2025 Blood pressure diastolic 01 mm Hg 08/27/2025 Height 70 in 08/27/2025 Blood pressure systolic 001 mm Hg 08/27/2025 Weight 185.0 lbs 08/27/2025 BMI 26.54 kg/m2 08/27/2025 Procedures Procedure Date Ordered Date Performed Result Body Sit e UPPER GI ENDOSCOPY BALLOOON DILATION OF ESOPH 08/27/2025 N/A Encounters Encounter Location Date Provider Diagnosis [facility] [address] [place] [address] 08/27/2025 Lee Becerra History of adenomato us polyp of colon Z86.010 ; Dysphagia R13.10 and Gastroesophageal reflux disease, unspecified whether esophagitis present K21.9 Assessments Encounter Date Diagnosis (ICD Code) Assessment Notes Treatment Notes Treatment Clinical Notes Section Notes 08/27/2025 History of adenomatous polyp of colon (ICD-10 - Z86.010) Overall, Lima appears well. Given his recurrent upper GI complaints, I did recommend that he should undergo an upper endoscopy for further evaluation. We did review that he might be having some increasing reflux with dysphagia secondary to esophageal spasm. However I did advise him that it would be important to rule out any associated problems such as an esophageal stricture or ring that needs to be dilated. I would also plan to obtain proximal esophageal biopsies to rule out eosinophilic esophagitis if the exam is otherwise unrevealing. Full consent has been obtained for this, including risks of bleeding and perforation. The procedure will be done with monitored anesthesia care. Depending upon his clinical course and the endoscopic findings we may need to proceed with further studies including an esophageal motility study and/or a barium swallow. I did advise him to eat carefully between now and the procedure. Lima was comfortable with this plan. Thank you again for allowing me to participate in Lima's care. I shall continue to keep you advised of his progress. 08/27/2025 Dysphagia (ICD-10 - R13.10) Overall, Lima appears well. Given his recurrent upper GI complaints, I did recommend that he should undergo an upper endoscopy for further evaluation. We did review that he might be having some increasing reflux with dysphagia secondary to esophageal spasm. However I did advise him that it would be important to rule out any associated problems such as an esophageal stricture or ring that needs to be dilated. I would also plan to obtain proximal esophageal biopsies to rule out eosinophilic esophagitis if the exam is otherwise unrevealing. Full consent has been obtained for this, including risks of bleeding and perforation. The procedure will be done with monitored anesthesia care. Depending upon his clinical course and the endoscopic findings we may need to proceed with further studies including an esophageal motility study and/or a barium swallow. I did advise him to eat carefully between now and the procedure. Lima was comfortable with this plan. Thank you again for allowing me to participate in Lima's care. I shall continue to keep you advised of his progress. 08/27/2025 Gastroesophageal reflux disease, unspecified whether esophagitis present (ICD-10 - K21.9) Overall, Lima appears well. Given his recurrent upper GI complaints, I did recommend that he should undergo an upper endoscopy for further evaluation. We did review that he might be having some increasing reflux with dysphagia secondary to esophageal spasm. However I did advise him that it would be important to rule out any associated problems such as an esophageal stricture or ring that needs to be dilated. I would also plan to obtain proximal esophageal biopsies to rule out eosinophilic esophagitis if the exam is otherwise unrevealing. Full consent has been obtained for this, including risks of bleeding and perforation. The procedure will be done with monitored anesthesia care. Depending upon his clinical course and the endoscopic findings we may need to proceed with further studies including an esophageal motility study and/or a barium swallow. I did advise him to eat carefully between now and the procedure. Lima was comfortable with this plan. Thank you again for allowing me to participate in Lima's care. I shall continue to keep you advised of his progress. Plan Of Treatment Pending Test Test Name Order Date UPPER GI ENDOSCOPY BALLOOON DILATION OF ESOPH 08/27/2025 Future Test Test Name Order Date COLONOSCOPY 07/08/2012 COLONOSCOPY 11/06/2017 UPPER GI ENDOSCOPY BALLOOON DILATION OF ESOPH 07/19/2022 COLONOSCOPY 03/14/2023 Next Appt Details Provider Name:Lee Moore Hernan , 09/16/2025 03:00:00 PM, [address] [place] [address] , [place], [place], [id number], Insurance Providers Payer Name Payer Address Payer Phone Subscriber Number Group Number Insured Name Patient Relationship to Insured Coverage Start Date Coverage End Date MEDICARE OF JONAS ROMANO [address] [id number] FLEX WICK Self - patient is the insured [facility] [address] [facility] [phone] [id number] FLEX WICK Self - patient is the insured Medical (General) History Medical History History ICD Code Hx of tubular adenomas- colo noscopies 2002, 2006, 2011- - also noted to have diverticulosis Denies MS,DM,CVA,Lung disease,renal dise ase Gout Shingles on forehead 10/2017 Colonoscopy 02/2018 2 small tubular adeno mas EGD in August of 2022 revea led some edema and erythema at the gastroesophageal junction with an associated small hiatal hernia. There was no definitive esophageal stricture or ring but he did respond well to dilation of the gastroesophageal junction with a large balloon up to 20 mm. He was started on omeprazole at that time and had a good improvement in his previous dysphagia. Biopsies were negative for Mckeon's esophagus. Negative screening colonoscopy in 05/2023 Surgical History Surgery Date(Month/Year) Tonsillectomy
[2025-09-14 11:34] VITALS: BMI 26.5
--- NOTE | 2025-09-14 13:02 | HO.ANESPROP2 ---
Documented by User: Maritza Mcghee NP 09/14/25 13:03 HPI - Anesthesia Eval Consult details Narrative: 80yo M for Upper Endoscopy with Balloon Dilitation PMFSH Past Medical History Medical History (Updated 09/14/25 @ 11:30 by Pascale Gleason RN) Hiatal hernia Urinary incontinence Difficulty swallowing Arthritis GERD (gastroesophageal reflux disease) Gout Shingles Diverticulosis Tubular adenoma Family History Family history of problems with anesthesia: No Surgical History Surgical History (Updated 09/14/25 @ 11:27 by Pascale Gleason RN) Hx of tonsillectomy History of esophagogastroduodenoscopy (EGD) H/O colonoscopy History of Problems with Anesthesia: No Social History Social History Are you a primary director of managed care to a significant other at home: No Do you presently have visiting nurse or other home services: No Patient Tobacco Use Status: Former Tobacco user Have you been hit, kicked, punched, or otherwise hurt by someone within the past year? If so, by whom?: No Advance Directives: No Advance Directives Information Provided: Yes Meds Allergies Allergy/AdvReac Type Severity Reaction Status Date / Time Seasonal Allergies Allergy Intermediate Unknown Verified 05/06/23 08:08 Home Medications ?Medication ?Instructions ?Recorded ?Confirmed ?Last Taken ?Type allopurinol 300 mg tablet 1 tab PO QA 09/11/22 09/14/25 05/27/23 History fluticasone propionate 50 2 spray intranasal QA 04/30/23 09/14/25 05/06/23 06:30 History mcg/actuation nasal spray,suspension omeprazole 40 mg capsule,delayed 40 mg PO QA 04/30/23 09/14/25 05/27/23 History release Exam Height,Weight and Vital Signs: Height 5 ft 10 in Weight 83.915 kg Assessment and Plan Assessment Anesthesia Assessment: Chart Reviewed Final Anesthetic Review Family History of Problems with Anesthesia: No History of Problems with Anesthesia: No Documented by User: Boone Busch MD 09/16/25 14:15 PMF Past Medical History Medical History (Updated 09/14/25 @ 11:30 by Pascale Gleason RN) Hiatal hernia Urinary incontinence Difficulty swallowing Arthritis GERD (gastroesophageal reflux disease) Gout Shingles Diverticulosis Tubular adenoma Surgical History Surgical History (Updated 09/14/25 @ 11:27 by Pascale Gleason RN) Hx of tonsillectomy History of esophagogastroduodenoscopy (EGD) H/O colonoscopy Social History Social History Are you a primary director of managed care to a significant other at home: No Do you presently have visiting nurse or other home services: No Patient Tobacco Use Status: Former Tobacco user Have you been hit, kicked, punched, or otherwise hurt by someone within the past year? If so, by whom?: No Advance Directives: No Advance Directives Information Provided: Yes Meds Allergies Allergy/AdvReac Type Severity Reaction Status Date / Time Seasonal Allergies Allergy Intermediate Unknown Verified 05/06/23 08:08 Home Medications ?Medication ?Instructions ?Recorded ?Confirmed ?Last Taken ?Type allopurinol 300 mg tablet 1 tab PO QAM 09/11/22 09/14/25 05/27/23 History fluticasone propionate 50 2 spray intranasal QAM 04/30/23 09/14/25 05/06/23 06:30 History mcg/actuation nasal spray,suspension omeprazole 40 mg capsule,delayed 40 mg PO QAM 04/30/23 09/14/25 05/27/23 History release Exam Airway Mallampati Class: II TM Dist: <=3cm Neck ROM: Full Loose/Missing/Broken Teeth: No Heart: ok Lungs: ok Assessment and Plan Assessment Anesthesia Assessment: Anesthesia Plan Discussed Final Anesthetic Review NPO: Yes ASA Class: III Final Preanesthetic Review: No Changes in Pt Med Stat, Meds/Allgs Chart Reviewed, Consent Obtained/Reviewed and Anes Risks/Benef Reviewed Patient Risk: Intermediate Procedure Risk: Intermediate Anesthetic Plan Anesthetic Plan: Agree w/ Assess. and Plan and TIVA Disposition: Standard PACU
[2025-09-16 13:35] VITALS: BP 148/85; PULSE 78; RESP 18; TEMP 36.1; O2SAT 97; BMI 26.5
[2025-09-16] MEDS: Lactated Ringers 1,000 ML 100 ML IVCONT (13:53)
[2025-09-16 15:21] VITALS: BP 113/72; PULSE 71; RESP 16; TEMP 36.2; O2SAT 96
--- NOTE | 2025-09-16 15:32 | P.BOP_ITS ---
Brief Operative Note Date of Service: 09/16/25 Pre-op diagnosis: Dysphagia, GERD Post-op diagnosis: other (R/O EoE, Hiatal hernia) Procedure: EGD with Balloon dilation of EG Junction from 19mm to 20mm balloons, and biopsies Surgeon: Lee Becerra MD Anesthesia: MAC Was an Dispensary Attendant used for this Procedure?: No Estimated blood loss (mL): 2.0 Pathology: other (A. Gastric antrum B. EG Junction at 39cm C. Esophagus 20-25mm) Condition: stable Disposition: PACU
[2025-09-16 15:35] VITALS: BP 131/78; PULSE 68; RESP 13; TEMP 36.1; O2SAT 96
--- NOTE | 2025-09-17 01:47 | OP_ITS ---
DATE OF SERVICE: 09/16/2025 SURGEON: Lee Becerra MD INDICATIONS: The patient presents for evaluation of dysphagia and history of gastroesophageal reflux. Full consent has been obtained from him for this, including risks of bleeding and perforation. PREOPERATIVE DIAGNOSIS: Gastroesophageal reflux and dysphagia. POSTOPERATIVE DIAGNOSIS: PROCEDURE PERFORMED: Esophagogastroduodenoscopy with balloon dilation of gastroesophageal junction and biopsies. ESTIMATED BLOOD LOSS: COMPLICATIONS: ANESTHESIA: Medication used, monitored anesthesia care. ASSISTANTS: SPECIMENS: POSTOPERATIVE DIAGNOSES: Gastroesophageal reflux and dysphagia, small hiatal hernia, rule out eosinophilic esophagitis. DESCRIPTION OF PROCEDURE: Patient was placed in left lateral decubitus position. The Olympus video gastroscope was passed in the posterior oropharynx and upper esophagus. There was no sign of any proximal esophageal ring or obstruction. The scope was advanced to the gastroesophageal junction at 39 cm. With insufflation of air, this area did appear to open normally and there was no sign of any stricture nor ring. There was no esophagitis. The gastroesophageal junction was minimally irregular, but no definitive evidence of Mckeon esophagus. The scope easily entered the stomach where there was a small hiatal hernia. There was some small, less than 10 mm hyperplastic appearing gastric polyps in the proximal stomach. The scope was advanced to the pylorus and the duodenum was cannulated to the descending portion. The duodenum including the bulb appeared normal without mass or ulceration. The scope was withdrawn back in the stomach. The gastric antrum and body appeared normal with good peristalsis. Scope was retroflexed visualizing the proximal stomach carefully which appeared normal, without any sign of mass or ulceration. The scope was straightened. The scope was withdrawn back to the esophagus. Given the symptomatology, I did use a [employer] incremental balloon to dilate the gastroesophageal junction from 19 mm to 20 mm at the recommended pressure for between 30 and 60 seconds each. Postdilation, there did not appear to be any heme noted nor any disruption of the gastroesophageal junction. Biopsies were obtained at the EG junction at 39 cm. Proximal to this, the esophageal mucosa appeared normal. There was no evidence of any proximal esophageal rings. I did obtain biopsies between 20 and 25 cm to rule out eosinophilic esophagitis. The scope was then withdrawn from the patient. He tolerated the procedure well and was returned to the recovery area in stable condition. IMPRESSION: 1. Small hiatal hernia. 2. Rule out eosinophilic esophagitis. PLAN: The results of the biopsies will be checked. He has been advised to continue his daily omeprazole. If things are stable, he could see me on p.r.n. basis. If swallowing remains an issue for him then we may need to proceed with further studies such as an upper GI series with a barium tablet and esophageal motility studies as well. MD RENÉ Rashid/CANDIDO / [id number] MTDD
== END 2025-09-16 16:12 | disposition home or self-care (01) ==
PROVIDERS: PCP Internal Medicine; Visit Provider Internal Medicine
PROC: (CPT 43239; principal; 2025-09-16 15:00)
DX: R13.10 Dysphagia, unspecified (principal); K21.9 Gastro-esophageal reflux disease without esophagitis; K44.9 Diaphragmatic hernia without obstruction or gangrene; K21.00 Gastro-esophageal reflux disease with esophagitis, without bleeding; Z86.0101 Personal history of adenomatous and serrated colon polyps
CPT/HCPCS: 43239; 43249; 88305; 88313; 88342; C1726; J2003; J2704